=== PATIENT | female | born 1960 | race Caucasian/White ===

== ENCOUNTER 2020-05-12 02:56 | Outpatient (CLI) | payer OTHER, SELFPAY ==
[2020-05-12 09:44] LABS: ALT 22 U/L (14-59); AST 19 U/L (15-37); Albumin 3.7 g/dL (3.4-5.0); Alkaline Phosphatase 57 U/L (46-116); Anion Gap 10.2 mmol/L (3-11); BUN 16 mg/dL (7-18); Bilirubin, Total 0.4 mg/dL (0.2-1.0); CO2 27.8 mmol/L (21.0-32.0); CREATININE 0.86 mg/dL (0.55-1.02); Calcium 8.9 mg/dL (8.5-10.1); Calculated LDL 200 mg/dL (<100); Chloride 101 mmol/L (98-107); Cholesterol 279 mg/dL (<200); Glucose 94 mg/dL (74-106); HDL Cholesterol 67 mg/dL (40-60); Potassium 4.2 mmol/L (3.5-5.1); Sodium 139 mmol/L (136-145); TSH (W/Ref FT4) 2.61 uIU/mL (0.36-3.74); Total Protein 7.2 g/dL (6.4-8.2); Triglyceride 60 mg/dL (<150)
[2020-05-13 04:43] LABS: Vitamin D 25 Total 63.9 ng/ml (30-100)
[2020-05-18 14:37] LABS: Apolipoprotein B, Serum 152 mg/dL (48-124); Beta VLDL Cholesterol Not Detected mg/dL (<15); Beta VLDL Triglycerides Not Detected mg/dL (<15); Cholesterol, Total, CDC 279 mg/dL; Chylomicron Cholesterol Not Detected; Chylomicron Triglycerides Not Detected; HDL Cholesterol, CDC 54 mg/dL (>=50); LDL Cholesterol 215 mg/dL; LDL Triglycerides 34 mg/dL (<=50); Lp(a) Cholesterol <5 mg/dL (<5); LpX Not detected; Triglycerides, CDC 77 mg/dL; VLDL Cholesterol 10 mg/dL (<30); VLDL Triglycerides 22 mg/dL (<120)
== END 2020-05-12 03:16 ==
PROVIDERS: PCP Nurse Practitioner Adult Health; Visit Provider Nurse Practitioner Adult Health
DX: E78.00 Pure hypercholesterolemia, unspecified (principal); Z13.29 Encounter for screening for other suspected endocrine disorder; Z13.1 Encounter for screening for diabetes mellitus; Z82.49 Family history of ischemic heart disease and other diseases of the circulatory system; Z83.49 Family history of other endocrine, nutritional and metabolic diseases; E55.9 Vitamin D deficiency, unspecified
CPT/HCPCS: 36415; 80053; 80061; 82306; 82172; 82664; 84443

== ENCOUNTER 2020-05-28 11:33 | Outpatient (REF) | payer OTHER, SELFPAY ==
--- NOTE | 2020-05-28 11:30 | PAPFT_PTH ---
PATIENT: Lisette Chao LOC: [facility] U#:[id number] AGE/SX: 59/F ROOM: RE05/28/[address]: Lelo Pretty APRN : 1960 BED: DIS: 05/28/2020 SPEC #: [id number] RECD: 05/28/20 18:07 STATUS: VIVIAN REQ #: [id number] TRINIDAD: 05/28/20 11:[address]: Lelo Pretty DEPT: [facility] Cytology RECD BY: Katalina Colon Tissues: 1 - CX/ENDOCX FOR PAP SMEARS Procedures: PAP THIN PREP/UVM Screening HPV DNA PROBE Comments: [id number]
== END 2020-05-28 11:53 ==
LOC: LBN 11:33
PROVIDERS: PCP Nurse Practitioner Adult Health; Visit Provider Nurse Practitioner Adult Health
DX: Z12.4 Encounter for screening for malignant neoplasm of cervix (principal); Z11.51 Encounter for screening for human papillomavirus (HPV)
CPT/HCPCS: 88142; 87624

== ENCOUNTER 2020-06-28 01:52 | Outpatient (CLI) | payer OTHER, SELFPAY ==
--- NOTE | 2020-06-28 12:54 | DI.MAMMO_ITS ---
EXAM: MG MAMMO SCREENING CLINICAL HISTORY: screening,Z12.39. TECHNIQUE: Bilateral full field digital CC and MLO mammographic images were obtained with 3D tomosyn thesis and utilizing computer aided detection (CAD). COMPARISON: Prior mammogram performed 2010. There are no interval mammograms FINDINGS: Fibroglandular tissue is moderately dense, this decreasing the sensitivity of the mammogram for findi ng in underlying lesions. There are no new significant radiograph findings in the right breast. In the left breast there has been an increase in microcalcification groups. This appears to be in a region where there was a previous skin marker in 2011, possibly for a palpable lump at that time. Ad ditional spot compression magnification view recommended + ultrasound. There is no new architectural distortion or skin thickening-traction. IMPRESSION: Moderately dense bilateral fibroglandular tissue. No obvious radiographic evidence of malignancy in the right breast. Increasing microcalcification groups in the left breast. Spot Mag views recommend ed. Also recommend breast ultrasound. This was an area of apparent palpable abnormality in 2011. BI-RADS Category 0 - Assessment Incomplete: Need additional imaging evaluation Breast Density - Category C - Heterogeneously dense Breast density Category C or D implies that the patient has dense breast tissue. Dense breast tissue can make it harder to find cancer on a mammogram. Dense breast tissue is also associated with an incr eased risk of breast cancer. This information about the result of the mammogram report was provided to the patient to raise their awareness. Use this report when you speak with the patient about their risks for breast cancer, which includes their family history. At that time, you may recommend additional screening tests (Ultrasoun d or MRI) as these tests may add significant information. A negative radiographic report should not delay biopsy if a dominant or clinically suspicious mass is present. Up to ten percent of cancers are not identified on mammography. A negative report may reinforce clinical impression. Adenosis and dense breasts may obscure an underlying neoplasm. False positive reports average 6 to 10%. Patient will receive a letter notifying them of these results.
== END 2020-06-28 02:12 ==
PROVIDERS: PCP Nurse Practitioner Adult Health; Visit Provider Nurse Practitioner Adult Health
DX: Z12.31 Encounter for screening mammogram for malignant neoplasm of breast (principal); R92.0 Mammographic microcalcification found on diagnostic imaging of breast
CPT/HCPCS: 77063; 77067

== ENCOUNTER 2020-07-01 00:50 | Outpatient (CLI) | payer OTHER, SELFPAY ==
--- NOTE | 2020-07-01 14:38 | DI.MAMMO_ITS ---
EXAM: MG MAMMO SCREEN CALL BACK UNI CLINICAL HISTORY: F/U MAMMO, INCREASE IN LT MICROCALCIFICATIONS. TECHNIQUE: Spot Mag CC and straight lateral views of left breast microcalcifications described on re cent screening mammogram 06/28/2020. COMPARISON: Prior mammograms 2010 were also reviewed. There are no interval mammograms since 2010. FINDINGS: There has been a definite increase in number of microcalcifications since 2011.. There are multiple groups of mostly punctate microcalcifications now evident. No obvious pleomorphism. Recommend follow-up mammogram and spot Mag views in 6 months. IMPRESSION: Left breast microcalcification groups which require follow-up in 6 months. Today's study will serve as our new baseline, given that she has not had a mammogram since 2011. The microcalcifications were not evident on the 2011 study. BI-RADS Category 3 - 6 month - Probably Benign Finding: Recommend follow-up mammography in 6 months Breast Density - Category C - Heterogeneously dense Breast density Category C or D implies that the patient has dense breast tissue. Dense breast tissue can make it harder to find cancer on a mammogram. Dense breast tissue is also associated with an incr eased risk of breast cancer. This information about the result of the mammogram report was provided to the patient to raise their awareness. Use this report when you speak with the patient about their risks for breast cancer, which includes their family history. At that time, you may recommend additional screening tests (Ultrasoun d or MRI) as these tests may add significant information. A negative radiographic report should not delay biopsy if a dominant or clinically suspicious mass is present. Up to ten percent of cancers are not identified on mammography. A negative report may reinforce clinical impression. Adenosis and dense breasts may obscure an underlying neoplasm. False positive reports average 6 to 10%. Patient will receive a letter notifying them of these results.
== END 2020-07-01 01:10 ==
PROVIDERS: PCP Nurse Practitioner Adult Health; Visit Provider Nurse Practitioner Adult Health
DX: R92.0 Mammographic microcalcification found on diagnostic imaging of breast (principal)
CPT/HCPCS: 77063; 77067

== ENCOUNTER 2021-02-02 02:14 | Outpatient (CLI) | payer MEDICAID, SELFPAY ==
--- NOTE | 2021-02-02 08:00 | DI.MAMMO_ITS ---
Exam(s) MG MAMMO DIAGNOSTIC UNI EXAM: MG MAMMO DIAGNOSTIC UNI left CLINICAL HISTORY: 6 MONTH F/U,F/U ABNL MAMMO, R92.8. TECHNIQUE: Craniocaudal and mediolateral oblique Full Field Digital Mammography views of the left br east with Computer Aided Diagnosis followed by Tomosynthesis. COMPARISON: MG DIAGNOSTIC BILAT MAMMO W/CAD from 10/24/2010 MG MG MAMMO SCREENING from 06/28/2020 MG MG MAMMO SCREENING from 06/28/2020 MG MG MAMMO SCREEN CALL BACK UNI from 07/01/2020 MG MG MAMMO SCREEN CALL BACK UNI from 07/01/2020 FINDINGS: Mammography/Tomosynthesis: Masses/Architectural Distortion: None seen. Microcalcifictions: Stable innumerable punctate calcifications in the upper and outer quadrants of le ft breast. No suspicious pleomorphic-type are seen. Skin Thickening/Nipple Retraction: None. IMPRESSION: 1. No evidence of malignancy is noted. 2. Unless there is more urgent need, follow-up screening mammography is recommended, as per [place] [employer] guidelines. 3. The findings were discussed with the patient on the date of the examination. BI-RADS Category 2 - Benign Findings Breast Density - Category C - Heterogeneously dense Breast density category C or D implies that the patient has dense breast tissue. Dense breast tissue is very common and is not abnormal but dense breast tissue can make it harder to find cancer on a ma mmogram. Also, dense breast tissue may increase their breast cancer risk. This information about the result of the mammogram report was provided to the patient to raise their awareness. Use this report when you speak with the patient about their risks for breast cancer, which includes their family hist ory. At that time, you may recommend for more screening tests (Ultrasound or MRI) as they might be us eful based on their risk. A negative radiographic report should not delay biopsy if a dominant or clinically suspicious mass is present. Up to ten percent of cancers are not identified on mammography. A negative report may reinforce clinical impression. Adenosis and dense breasts may obscure an underlying neoplasm. False positive reports average 6 to 10%. Patient will receive a letter notifying them of these results.
== END 2021-02-02 02:34 ==
PROVIDERS: PCP Nurse Practitioner Adult Health; Visit Provider Nurse Practitioner Adult Health
DX: Z12.31 Encounter for screening mammogram for malignant neoplasm of breast (principal); R92.8 Other abnormal and inconclusive findings on diagnostic imaging of breast; N60.82 Other benign mammary dysplasias of left breast
CPT/HCPCS: 77061; 77065; G0279

== ENCOUNTER 2021-06-08 00:24 | Outpatient (CLI) | payer MEDICAID, SELFPAY ==
--- NOTE | 2021-06-08 07:04 | DI.RAD_ITS ---
Exam(s) XR ARTHRITIS SERIES EXAM: XR ARTHRITIS SERIES CLINICAL HISTORY: r/o bony erosions; PIP joints enlarged--?OA,hand joint pain, m25.549. TECHNIQUE: 2D digital imaging was performed. COMPARISON: No exams were available for comparison FINDINGS: PA and [place]org[place]ard views of both hands reveal no evidence of fractures nor subluxation. No obvious osse ous lesions nor erosions. Ulnar styloid process is are intact with no evidence of erosions. There i s no significant ulnar variance. There are no obvious degenerative changes at the 1st carpometacarpa l joints nor elsewhere in the carpal row bones. Metacarpophalangeal joints appear unremarkable. Proximal interphalangeal joints exhibit mild degenerative changes. DIP joints exhibit mild degenerat herbert changes. No prominent degenerative changes. No osteophytes. No subarticular degenerative cysts . IMPRESSION: Mild findings as described above. DATA REPOSITORY: RADIATION DOSE DELIVERED:
== END 2021-06-08 00:44 ==
PROVIDERS: PCP Nurse Practitioner Adult Health; Visit Provider Nurse Practitioner Adult Health
DX: M25.541 Pain in joints of right hand (principal); M25.542 Pain in joints of left hand; M15.2 Bouchard's nodes (with arthropathy)
CPT/HCPCS: 73120

== ENCOUNTER 2021-10-20 03:05 | Outpatient (CLI) | payer MEDICAID, SELFPAY ==
[2021-10-20 10:15] LABS: ESR 11 mm/hr (0-30)
[2021-10-20 11:10] LABS: C-Reactive Protein < 0.05 mg/dL (0.0-0.3)
[2021-10-21 11:28] LABS: Lyme Ab w Rflx to Lyme Confirm Negative (Negative)
== END 2021-10-20 03:06 | disposition home or self-care (01) ==
LOC: LBO 03:05
PROVIDERS: PCP Nurse Practitioner Adult Health; Referring Provider Nurse Practitioner Adult Health
DX: M25.59 Pain in other specified joint (principal); M25.511 Pain in right shoulder; M25.512 Pain in left shoulder; M25.551 Pain in right hip; M25.552 Pain in left hip; M25.541 Pain in joints of right hand; M25.542 Pain in joints of left hand
CPT/HCPCS: 36415; 85652; 86140; 86618

== ENCOUNTER 2022-07-19 01:11 | Outpatient (CLI) | payer MEDICAID, SELFPAY ==
--- NOTE | 2022-07-19 09:34 | DI.MAMMO_ITS ---
Exam(s) MAMMO SCREENING EXAM: MAMMO SCREENING CLINICAL HISTORY: screening,z12.39 TECHNIQUE: Bilateral full field digital CC and MLO mammographic images were obtained with 3D tomosyn thesis and utilizing computer aided detection (CAD). COMPARISON: 2010 and 2020 FINDINGS: Masses/Architectural Distortion: None seen. Microcalcifications: No suspicious pleomorphic-type are seen. Benign calcifications are again noted i n the superior left breast. Vascular calcifications are also present Skin Thickening/Nipple Retraction: None. IMPRESSION: 1. No significant interval change with no specific features of malignancy noted. 2. Unless there is more urgent need, screening mammography is recommended, as per [place] [employer] guidelines. BI-RADS Category 2 - Benign Findings Breast Density - Category C - Heterogeneously dense Breast density category C or D implies that the patient has dense breast tissue. Dense breast tissue is very common and is not abnormal but dense breast tissue can make it harder to find cancer on a ma mmogram. Also, dense breast tissue may increase their breast cancer risk. This information about the result of the mammogram report was provided to the patient to raise their awareness. Use this report when you speak with the patient about their risks for breast cancer, which includes their family hist ory. At that time, you may recommend for more screening tests (Ultrasound or MRI) as they might be us eful based on their risk. A negative radiographic report should not delay biopsy if a dominant or clinically suspicious mass is present. Up to ten percent of cancers are not identified on mammography. A negative report may reinforce clinical impression. Adenosis and dense breasts may obscure an underlying neoplasm. False positive reports average 6 to 10%. Patient will receive a letter notifying them of these results.
== END 2022-07-19 01:31 ==
LOC: DI 01:12
PROVIDERS: PCP Nurse Practitioner Adult Health; Visit Provider Nurse Practitioner Adult Health
DX: Z12.31 Encounter for screening mammogram for malignant neoplasm of breast (principal)
CPT/HCPCS: 77063; 77067

== ENCOUNTER 2023-01-02 03:31 | Outpatient (CLI) | payer MEDICAID, SELFPAY ==
[2023-01-02 12:43] LABS: Anion Gap 7.7 mmol/L (3-11); BUN 26 mg/dL (7-18); CO2 25.3 mmol/L (21.0-32.0); CREATININE 0.8 mg/dL (0.55-1.02); Calcium 8.8 mg/dL (8.5-10.1); Chloride 104 mmol/L (98-107); Glucose 99 mg/dL (74-106); Sodium 137 mmol/L (136-145)
[2023-01-02 13:12] LABS: Vitamin D 25 Total 47.9 ng/mL (30-100)
== END 2023-01-02 03:32 | disposition home or self-care (01) ==
LOC: LOS 03:32
PROVIDERS: PCP Nurse Practitioner Adult Health; Visit Provider Nurse Practitioner Adult Health
DX: Z86.39 Personal history of other endocrine, nutritional and metabolic disease (principal); Z82.49 Family history of ischemic heart disease and other diseases of the circulatory system; E78.00 Pure hypercholesterolemia, unspecified
CPT/HCPCS: 36415; 80048; 82306

== ENCOUNTER → 2023-02-14 01:56 | Outpatient (CLI) | payer MEDICAID, SELFPAY ==
--- NOTE | 2023-02-14 07:30 | DI.RAD_ITS ---
Exam(s) XR KNEE RT 3V AP,LAT,PATRICIA EXAM: XR KNEE RT 3V AP,LAT,PATRICIA CLINICAL HISTORY: ?OA,rt knee pain, m25.561. TECHNIQUE: 2D digital imaging was performed of the right knee. Three views obtained. Merchant, AP, l ateral and PA tunnel views were obtained. COMPARISON: No exams were available for comparison FINDINGS: BONES: No acute fracture is present. No bony destructive lesion is seen. JOINTS: The knee is normally aligned. There is a small joint effusion. Degenerative changes are seen in all 3 joint compartments characterized by spurring. There is mild narrowing of the medial femora l tibial joint. SOFT TISSUE: Normal. IMPRESSION: Osteoarthritis of the knee. DATA REPOSITORY: RADIATION DOSE DELIVERED:
--- NOTE | 2023-02-14 07:30 | DI.RAD_ITS ---
Exam(s) XR HIP PELVIS ADULT BL EXAM: XR HIP PELVIS ADULT BL CLINICAL HISTORY: ?OA,bilat hip pain, m25.551,m25.552. TECHNIQUE: 2D digital imaging was performed of the pelvis and bilateral hips. Three images were obt ained. AP pelvis and lateral views of both hips were obtained. COMPARISON: No exams were available for comparison FINDINGS: BONES: No acute fracture is present. No bony destructive lesion is seen. JOINTS: No dislocation present. Degenerative changes are seen in the hips bilaterally characterized b y joint space narrowing and osteophytes. The sacroiliac joints and symphysis pubis are unremarkable. SOFT TISSUE: Normal. IMPRESSION: Osteoarthritis of the hips bilaterally. DATA REPOSITORY: RADIATION DOSE DELIVERED:
--- NOTE | 2023-02-14 11:16 | DI.RAD_ITS ---
Exam(s) XR KNEE LT 3V AP,LAT,PATRICIA EXAM: XR KNEE LT 3V AP,LAT,PATRICIA CLINICAL HISTORY: ?OA,lt knee pain, m25.562. TECHNIQUE: 2D digital imaging was performed of the left knee. Three images were obtained. AP, late ral and PA tunnel views were obtained. COMPARISON: There are no priors for comparison. FINDINGS: BONES: No acute fracture is present. No bony destructive lesion is seen. JOINTS: The knee is normally aligned. There is a small joint effusion. There is spurring in all 3 carlos int compartments. There is mild narrowing of the medial femoral tibial joint. No loose body. SOFT TISSUE: Normal. IMPRESSION: Degenerative changes of the knee. DATA REPOSITORY: RADIATION DOSE DELIVERED:
== END ==
PROVIDERS: PCP Nurse Practitioner Adult Health; Visit Provider Nurse Practitioner Adult Health
DX: M17.12 Unilateral primary osteoarthritis, left knee (principal); M17.11 Unilateral primary osteoarthritis, right knee
CPT/HCPCS: 73521; 73562

== ENCOUNTER 2023-02-16 02:19 | Outpatient (CLI) | payer MEDICAID, SELFPAY ==
[2023-02-16 12:48] LABS: Abs Immature Grans 0.02 10^3/uL (0.0-0.06); Absolute Basophil Count 0.03 10^3/uL (0.0-0.2); Absolute Eosinophil Count 0.14 10^3/uL (0.0-0.7); Absolute Lymphocyte Count 1.21 10^3/uL (1.2-3.4); Absolute Monocyte Count 0.47 10^3/uL (0.1-0.8); Absolute Neutrophil Count 3.48 10^3/uL (1.2-6.7); Basophils % 0.6; Eosinophils % 2.6; HCT 36.4 % (36.0-46.0); HGB 12.5 g/dL (11.2-15.7); Immature Grans % 0.4; Lymphocytes % 22.6; MCH 32.1 pg (27.0-33.0); MCHC 34.3 % (32.0-36.0); MCV 93 fL (80-95); MPV 10.3 fL (8.0-11.0); Monocytes % 8.8; Platelet Count 240 10^3/uL (130-400); RDW 12.2 % (11.7-14.6); RDW-SD 42.1 fL; WBC 5.35 10^3/uL (4.4-10.8)
[2023-02-16 13:04] LABS: ALT 18 U/L (14-59); AST 5 U/L (15-37); Albumin 3.4 g/dL (3.4-5.0); Alkaline Phosphatase 126 U/L (46-116); BUN 31 mg/dL (7-18); Bilirubin, Total 0.4 mg/dL (0.2-1.0); CREATININE 0.8 mg/dL (0.55-1.02); Calcium 8.7 mg/dL (8.5-10.1); Calculated LDL 199 mg/dL (<100); Chloride 105 mmol/L (98-107); Cholesterol 296 mg/dL (<200); Glucose 87 mg/dL (74-106); HDL Cholesterol 58 mg/dL (40-60); Sodium 138 mmol/L (136-145); TSH (W/Ref FT4) 1.91 uIU/mL (0.36-3.74); Total Protein 7.1 g/dL (6.4-8.2); Triglyceride 197 mg/dL (<150)
[2023-02-16 13:20] LABS: ESR 6 mm/hr (0-30)
[2023-02-16 14:05] LABS: C-Reactive Protein < 0.05 mg/dL (0.0-0.3)
[2023-02-16 18:42] LABS: Rheumatoid Factor <8.6 IU/mL (<12.0)
[2023-02-18 12:04] LABS: Lipoprotein (a) 13 nmol/L (<75)
[2023-02-19 08:37] LABS: Cyclic Citrullinated Peptide <2.5 U/mL (<5.0)
[2023-02-19 09:59] LABS: Lyme Ab w Rflx to Lyme Confirm Negative (Negative)
[2023-02-19 11:59] LABS: Hepatitis A Antibody IgM Negative (Negative); Hepatitis B Core Antibody Negative (Negative); Hepatitis B surface Ag Negative (Negative); Hepatitis C Ab w Rflx HCV PCR Negative (Negative)
[2023-02-19 14:21] LABS: ANA Interpretation Negative (Negative)
[2023-02-20 07:39] LABS: Anaplasma phagocytophilum Negative (Negative); B. miyamotoi PCR Negative (Negative); Babesia divergens/MO-1 Negative (Negative); Babesia duncani Negative (Negative); Babesia microti Negative (Negative); Ehrlichia chaffeensis Negative (Negative); Ehrlichia ewingii/canis Negative (Negative); Ehrlichia muris eauclairensis Negative (Negative)
== END 2023-02-16 02:20 | disposition home or self-care (01) ==
LOC: LOS 02:19
PROVIDERS: PCP Nurse Practitioner Adult Health; Visit Provider Nurse Practitioner Adult Health
DX: E78.00 Pure hypercholesterolemia, unspecified (principal); M25.59 Pain in other specified joint; M65.4 Radial styloid tenosynovitis [de Quervain]; I73.00 Raynaud's syndrome without gangrene; Z86.39 Personal history of other endocrine, nutritional and metabolic disease; Z11.59 Encounter for screening for other viral diseases; Z01.84 Encounter for antibody response examination; Z82.49 Family history of ischemic heart disease and other diseases of the circulatory system
CPT/HCPCS: 36415; 80053; 80061; 83695; 85652; 86200; 86704; 86709; 86803; 87340; 87798; 84443; 85025; 86038; 86140; 86431; 86618

== ENCOUNTER 2024-01-28 19:20 | Outpatient (CLI) | payer MEDICAID, SELFPAY ==
[2024-01-28 15:05] LABS: Ferritin 204 ng/mL (8-252)
== END 2024-01-28 19:21 | disposition home or self-care (01) ==
LOC: LBO 19:21
PROVIDERS: PCP Nurse Practitioner Adult Health; Visit Provider Nurse Practitioner Adult Health
DX: I73.00 Raynaud's syndrome without gangrene (principal); M19.041 Primary osteoarthritis, right hand; M19.042 Primary osteoarthritis, left hand; M16.0 Bilateral primary osteoarthritis of hip; M17.0 Bilateral primary osteoarthritis of knee
CPT/HCPCS: 36415; 82728; 83655

== ENCOUNTER 2024-08-29 10:07 | Outpatient (CLI) | payer MEDICAID, SELFPAY | END 2024-08-29 10:08 | disposition home or self-care (01) | PROVIDERS: PCP Nurse Practitioner Adult Health; Visit Provider Nurse Practitioner Adult Health | DX: R78.71 Abnormal lead level in blood (principal) | CPT/HCPCS: 36415; 83655 ==

== ENCOUNTER 2024-09-08 12:29 | Outpatient (REF) | payer MEDICAID, SELFPAY ==
--- NOTE | 2024-09-08 11:45 | PAPFT_PTH ---
PATIENT: Lisette Chao LOC: [facility] U#:[id number] AGE/SX: 64/F ROOM: RE09/08/[address]: Lelo Pretty APRN : 1960 BED: DIS: 09/08/2024 SPEC #: [id number] RECD: 09/08/24 16:49 STATUS: VIVIAN REQ #: [id number] TRINIDAD: 09/08/24 11:[address]: Lelo Pretty DEPT: [facility] Cytology RECD BY: Katalina Colon Tissues: 1 - CX/ENDOCX FOR PAP SMEARS Procedures: PAP THIN PREP/UVM Screening HPV DNA PROBE Comments: [id number] (HPV 16 & 18/45)
== END 2024-09-08 12:30 | disposition home or self-care (01) ==
LOC: LBN 12:29
PROVIDERS: PCP Nurse Practitioner Adult Health; Referring Provider Nurse Practitioner Adult Health; Visit Provider Nurse Practitioner Adult Health
DX: Z11.3 Encounter for screening for infections with a predominantly sexual mode of transmission (principal); N89.8 Other specified noninflammatory disorders of vagina; R87.618 Other abnormal cytological findings on specimens from cervix uteri; N77.1 Vaginitis, vulvitis and vulvovaginitis in diseases classified elsewhere
CPT/HCPCS: 88142; 87480; 87510; 87624; 87660

== ENCOUNTER 2025-05-15 10:07 | Outpatient (CLI) | payer MEDICAID, SELFPAY | END 2025-05-15 10:08 | disposition home or self-care (01) | LOC: LBO 10:07 | PROVIDERS: PCP Nurse Practitioner Adult Health; Visit Provider Nurse Practitioner Adult Health | DX: R78.71 Abnormal lead level in blood (principal) | CPT/HCPCS: 36415; 83655 ==